=== PATIENT | male | born 1995 | race Two or more races ===

== ENCOUNTER 2024-11-25 22:24 | Emergency (ER) | payer SELFPAY ==
[~2024-11-25] VITALS: Ht 172.7 cm; Wt 101.5 kg
[2024-11-25 23:18] VITALS: BP 142/88
[2024-11-25] MEDS: SODIUM CHLORIDE 0.9% 1,000 ML IV ONE (23:18)
[2024-11-25] MEDS: FAMOTIDINE (10MG/ML) 2ML VL IV ONE (23:18)
[2024-11-25] MEDS: diphenhdrAMINE HCL 50 MG/1 ML VL IV ONE (23:18)
[2024-11-25] MEDS: ACETAMINOPHEN 500 MG TAB or CAP PO ONE (23:18)
[2024-11-25] MEDS: DexAMETHasone SOD PHOS 10MG/1ML VIAL INJ IV ONE (23:18)
[2024-11-25] MEDS: ONDANSETRON HCL 4 MG/2 ML VIAL ONE (23:29)
[2024-11-25 23:30] VITALS: PULSE 91; RESP 16; O2SAT 95
[2024-11-25] MEDS: ONDANSETRON HCL 4 MG/2 ML VIAL IV ONE (23:30)
[2024-11-26 00:18] VITALS: TEMP 100.1
--- NOTE | 2024-11-26 00:33 | ED.PDOC ---
HPI Allergic reaction HPI Comments 29 y/o obese M with no significant medical history c/o generalized upper torso, bilateral arms, neck, and facial rash with associated chest discomfort described as like someone socked me in the chest." Patient reports onset of symptoms this morning, worsened after taking a shower. Reports no recent known allergen exposure, new products or medications or sick contacts. Also reports having mild sore throat this morning that resolved prior to arrival. He denies having any current shortness of breath, throat pain or swelling, palpitations, fever, chills, or further associated symptoms. Chief Complaint: Allergic Reaction Time Seen by MD: 23:45 Primary Care Provider: UNK Reviewed Notes: Nurses Notes, Medications, Allergies Allergies: Coded Allergies: Erythromycin (Verified Allergy, Unknown, 12/18/14) Information Source: Patient Mode of Arrival: Ambulatory Severity: Mild Rash: Mild SOB: None Difficulty swallowing: None Pruritus: None Timing: Hours Duration: Since onset Prehospital treatment: None Location: Other (as per HPI) Exposed to: Unknown History of: None Modyifying Factors: None Associated Sign and Symptoms: Chest Pain Past Medical History PAST MEDICAL HISTORY: Denies Surgical History: Denies all surgeries Family History Family History: Reviewed,noncontributory to illness Social History Smoker: Non-Smoker Alcohol: Denies ETOH Use Drugs: Marijuana Lives In: Home All Other Systems: Reviewed and Negative (Comprehensive systems review obtained and negative except for what is stated in the HPI.) Physical Exam General Appearance: No Apparent Distress, Obese HEENT: Pharyngeal Erythema (Mild.), Other (Pupils and face symmetric. Moist mucous membranes.) Neck: Full Range of Motion, Normal Inspection Respiratory: Lungs Clear, No Accessory Muscle Use, No Respiratory Distress, Normal Breath Sounds Cardiovascular: No Edema, No JVD, Regular Rate/Rhythm Breast Exam: Deferred Gastrointestinal: Non Tender, Soft Genitalia: Deferred Pelvic: Deferred Rectal: Deferred Extremities: Normal range of motion, Non-tender, No pedal edema Neurologic: Alert (Oriented x4), Normal Affect, Normal Mood Cerebellar Function: NOT DONE Reflexes: NOT DONE Skin: Dry, Normal Color, Rash (Erythematous maculopapular rash on upper torso, forehead and upper extremities), Warm Lymphatic: NOT DONE Was a procedure done? Was a procedure done?: No Differential diagnosis (all) Differential Diagnosis: Anaphylaxis, Angioedema, Contact Dermatitis, Drug Reaction, Urticaria, Other (Viral exanthem, pneumonia, mi, arrhythmia, among others) X-Ray, Labs, Meds, VS Vital Signs Date Time Temp Pulse Resp B/P (MAP) Pulse Ox O2 Delivery O2 Flow Rate FiO2 11/26/24 00:18 100.1 11/25/24 23:56 100.3 100.3 11/25/24 23:30 91 16 95 Room Air* 0 21 11/25/24 23:18 100.6 11/25/24 23:18 100.6 91 16 142/88 (106) 95 100.6 11/25/24 22:30 16 95 Room Air* 0 21 11/25/24 22:30 100.6 91 16 142/88 (106) 95 100.6 Lab Test 11/25/24 23:37 Range/Units Troponin I High Sensitivity < 3 L </=54 ng/L Current Medications Medications (Trade) Dose Ordered Sig/Dominic Route Start Time Stop Time Status Last Admin Sodium Chloride 1,000 ml @ 1,000 mls/hr Q1H ONCE IV 11/25/24 23:00 11/25/24 23:59 DC 11/25/24 23:18 Acetaminophen (Tylenol Tablet Or Capsule) 1,000 mg ONCE ONCE PO 11/25/24 23:00 11/25/24 23:01 DC 11/25/24 23:18 Diphenhydramine HCl (Benadryl Injection) 50 mg ONCE ONCE IV 11/25/24 23:00 11/25/24 23:01 DC 11/25/24 23:18 Dexamethasone Sodium Phosphate (Decadron Injection) 10 mg ONCE ONCE IV 11/25/24 23:00 11/25/24 23:01 DC 11/25/24 23:18 Famotidine (Pepcid Injection) 20 mg ONCE ONCE IV 11/25/24 23:00 11/25/24 23:01 DC 11/25/24 23:18 Ondansetron HCl (Zofran) 4 mg ONCE ONCE IV 11/25/24 23:30 11/25/24 23:31 DC 11/25/24 23:30 PROCEDURE(s): CXR1 - CHEST XRAY 1 VIEW REASON: cp ORDER NUMBER(s): [id number], ACCESSION NUMBER(s): [id number] CHEST RADIOGRAPH Indication: cp Technique: Single frontal view of the chest was obtained Comparison: None FINDINGS: Lines and Tubes: None Lungs: Clear Pleura: No effusion. No pneumothorax. Cardiomediastinal contours: Unremarkable Bones: Unremarkable IMPRESSION: Clear lungs. X-Ray, Labs, Meds, VS Comment 29-year-old male with no significant past medical history presenting with rash and chest discomfort Vitals remarkable for temperature 100.6, BP 142/88 Exam remarkable for erythematous maculopapular rash on forehead, upper trunk and upper extremities Rhythm strip independently interpreted by me: Sinus rhythm, rate 91, no ectopy. Chest x-ray unremarkable Troponin negative Patient treated with the following in the ED: 1 L 0.9 normal saline IV bolus, Benadryl 50 mg IV, dexamethasone 10 mg IV, Pepcid 20 mg IV, Tylenol 1 g p.o. On re-evaluation, patient is no longer febrile and vitals were stable. Patient states he feels well and is comfortable being discharged home. Patient appears stable for discharge with close outpatient follow-up with his primary physician. Rx Benadryl, Pepcid, hydrocortisone, Tylenol Time of 1ST Reevaluation: 00:15 Reevaluation 1ST: Unchanged Time of 2ND Reevaluation: 01:10 Patient Education/Counseling: Treatment, Need For Follow Up Family Education/Counseling: No Family Present Departure 1 Departure Time of Disposition: 01:10 Impression: Primary Impression: Viral exanthem Additional Impression: Nonspecific chest pain Disposition: 01 HOME / SELF CARE / HOMELESS Condition: Stable Additional Instructions: Your blood test was unremarkable. Your chest x-ray was normal. Your EKG was normal. I have prescribed medication for your symptoms, which may be due to a viral rash. Follow-up with your primary doctor in 1-2 days. Return to ER for persistent or worsening symptoms. e-Prescriptions Famotidine (PEPCID TABLET) 20 Mg Tb 1 TAB PO BID PRN, #30 TAB 5 Refills Prn rash or itching Prov: JENNIFER MILLER MD 11/26/24 Hydrocortone (Hydrocortisone 1%) 1 Applic Ap 1 APPLIC TOP BID PRN, #30 GRAMS Prn rash or itching Prov: JENNIFER MILLER MD 11/26/24 Diphenhydramine Hcl (Benadryl Allergy) 25 Mg Tab 1-2 TAB PO Q6HP PRN, #30 TAB Prn rash or itching Prov: JENNIFER MILLER MD 11/26/24 Acetaminophen (Tylenol Extra Strength) 500 Mg Tab 1000 MG PO Q6HP PRN, #30 TAB Prn pain or fever Prov: JENNIFER MILLER MD 11/26/24 Discharged With: Self Critical Care Note Critical Care Time?: No Stability Stability form required: No Heart Score Heart Score: Heart Score Response (Comments) Value History Slightly Suspicious 0 EKG Repolarization Disturb 1 Age <45 0 Risk Factors No known risk factors 0 Troponin Normal limit 0 Total 1 I personally scribed for JENNIFER MILLER MD ([email or web address]) on 11/26/24 at 00:33. Electronically submitted by Vignesh Bridges ([email or web address]). JENNIFER MILLER MD November 26, 2024 00:33
--- NOTE | 2024-11-26 00:48 | DVH ---
CHEST RADIOGRAPH Indication: cp Technique: Single frontal view of the chest was obtained Comparison: None FINDINGS: Lines and Tubes: None Lungs: Clear Pleura: No effusion. No pneumothorax. Cardiomediastinal contours: Unremarkable Bones: Unremarkable IMPRESSION: Clear lungs.
[2024-11-26 01:12] VITALS: PULSE 74
[2024-11-26] MEDS ORDERED: DIPH25TA54 PO (01:13)
[2024-11-26] MEDS ORDERED: HYD1TP TOP (01:13)
[2024-11-26] MEDS ORDERED: FAMO20TA10 PO (01:13)
[2024-11-26] MEDS ORDERED: ACET-1304 PO (01:13)
[2024-11-26] MEDS ORDERED: ACYC400T16 PO (23:55)
--- NOTE | 2024-11-27 10:00 | ECG ---
[facility] Test Date: 2024-11-26 Test Time: 01:12:11 Pat Name: ELDA MITTAL Department: ER Room: Gender: M [employer]: KURT : 1995 Requested By: JENNIFER LOZADA Order Number: [id number] Reading MD: Measurements Intervals [place] Rate: 74 P: 12 NV: 153 QRS: -10 QRSD: 106 T: 27 QT: 378 QTc: 420 Interpretive Statements Sinus rhythm Please click the below link to view image of tracing.
== END 2024-11-26 01:23 | disposition home or self-care (01) ==
LOC: ER 22:24
DX: B09 Unspecified viral infection characterized by skin and mucous membrane lesions (principal); R07.89 Other chest pain; J02.9 Acute pharyngitis, unspecified; F12.90 Cannabis use, unspecified, uncomplicated; E66.9 Obesity, unspecified; Z88.1 Allergy status to other antibiotic agents
CPT/HCPCS: 36415; 71045; 84484; 96361; 96374; 96375; 99284; J1100; J1200; J2405; J3490; J7030

== ENCOUNTER 2024-11-26 21:59 | Emergency (ER) | payer SELFPAY ==
[~2024-11-26] VITALS: Ht 172.7 cm; Wt 103.1 kg
[~2024-11-26 21:59] MED LIST: ACET-1304 PO; DIPH25TA54 PO; FAMO20TA10 PO; HYD1TP TOP
[2024-11-26 23:52] VITALS: BP 146/89; PULSE 93; RESP 16; TEMP 97.6; O2SAT 97
[2024-11-26] MEDS ORDERED: ACYC400T16 PO (23:55)
--- NOTE | 2024-11-26 23:55 | ED.PDOC ---
History of Present Illness(SKN HPI Comments 29-year-old male presents to ER with complaints of rash x3 days. Patient reports that he started developing a 2/10 painful red rash to face, back, chest and arms and intermittent frontal headache 3 days ago. Notes that he was seen for his symptoms in ER here yesterday, diagnosed with a viral rash at that time and has been taking his prescribed medications without any relief. Patient states that his rash developed shortly after [facility]. Patient presents to ER ambulatory on arrival, with steady gait, in no distress. Denies fever, body aches, chills, shortness of breath, chest pain, use of new soaps/detergents or any further symptoms/complaints Chief Complaint: Rash Time Seen by MD: 22:02 Primary Care Provider: JESSE History of Present Illness: Nurses Notes, Medications, Allergies Allergies: Coded Allergies: Erythromycin (Verified Allergy, Unknown, 12/18/14) Home Meds Active Scripts Acyclovir (ZOVIRAX TABLET) 400 Mg Tb, 1 TAB PO TID for 7 Days, #21 TAB 0 Refills Prov:SERGO HADLEY 11/26/24 Famotidine (PEPCID TABLET) 20 Mg Tb, 1 TAB PO BID PRN, #30 TAB 5 Refills Prn rash or itching Prov:JENNIFER MILLER MD 11/26/24 Hydrocortone (Hydrocortisone 1%) 1 Applic Ap, 1 APPLIC TOP BID PRN, #30 GRAMS Prn rash or itching Prov:JENNIFER MILLER MD 11/26/24 Diphenhydramine Hcl (Benadryl Allergy) 25 Mg Tab, 1-2 TAB PO Q6HP PRN, #30 TAB Prn rash or itching Prov:JENNIFER MILLER MD 11/26/24 Acetaminophen (Tylenol Extra Strength) 500 Mg Tab, 1000 MG PO Q6HP PRN, #30 TAB Prn pain or fever Prov:JENNIFER MILLER MD 11/26/24 Information Source: Patient Mode of Arrival: Ambulatory Tetanus: UTD Past Medical History PAST MEDICAL HISTORY: Denies Surgical History: Denies all surgeries Family History Family History: Unknown Social History Smoker: Non-Smoker Alcohol: Denies ETOH Use Drugs: Marijuana Lives In: Home Constitutional: denies: chills, diaphoresis, fatigue, fever, malaise, sweats, weakness, others EENTM: denies: blurred vision, double vision, ear bleeding, ear discharge, ear drainage, ear pain, ear ringing, eye pain, eye redness, hearing loss, mouth pain, mouth swelling, nasal discharge, nose bleeding, nose congestion, nose joselyn n, photophobia, tearing, throat pain, throat swelling, voice changes, others Respiratory: denies: cough, hemoptysis, orthopnea, SOB at rest, shortness of breath, SOB with excertion, stridor, wheezing, others Cardiovascular: denies: chest pain, dizzy spells, diaphoresis, Dyspnea on exertion, edema, irregular heart beat, left arm pain, lightheadedness, palpitations, PND, syncope, others Gastrointestinal: denies: abdomen distended, abdominal pain, blood streaked bowels, constipated, diarrhea, dysphagia, difficulty swallowing, hematemesis, melena, nausea, poor appetite, poor fluid intake, rectal bleeding, rectal pain, vomiting, others Genitourinary: denies: burning, dysuria, flank pain, frequency, hematuria, incontinence, penile discharge, penile sore, pain, testicle pain, testicle swelling, urgency, others Neurological: denies: dizziness, fainting, headache, left sided numbness, left sided weakness, numbness, paresthesia, pre-existing deficit, right sided numbness, right sided weakness, seizure, speech problems, tingling, tremors, weakness, others Musculoskeletal: denies: back pain, gout, joint pain, joint swelling, muscle pain, muscle stiffness, neck pain, others Integumetry: reports: others (As stated in HPI) Allergic/Immunocompromised: denies: Difficulty Healing, Frequent Infections, Hives, Itching, others Hematologic/Lymphatic: denies: anemia, blood clots, easy bleeding, easy bruising, swollen glands, others Endocrine: denies: excessive hunger, excessive sweating, excessive thirst, excessive urination, flushing, intolerance to cold, intolerance to heat, unexplained weight gain, unexplained weight loss, others Psychiatric: denies: anxiety, bipolar disorder, depression, hopeless, panic disorder, schizophrenia, sleepless, suicidal, others Physical Exam General Appearance: No Apparent Distress, Obese HEENT: Normal ENT Inspection, PERRL/EOMI, Pharynx Normal, TMs Normal Neck: Full Range of Motion, Non-Tender, Normal Respiratory: Chest Non-Tender, Lungs Clear, No Accessory Muscle Use, No Respiratory Distress, Normal Breath Sounds Cardiovascular: No Murmur, No Gallop, Regular Rate/Rhythm Breast Exam: Deferred Gastrointestinal: NOT DONE Genitalia: Deferred Pelvic: Deferred Rectal: Deferred Extremities: Normal capillary refill, Normal range of motion Neurologic: Alert, capacitor tester II-XII nml as Tested, No Motor Deficits, Normal Affect, Normal Mood, No Sensory Deficits Cerebellar Function: Normal Reflexes: Normal Skin: Dry, Warm, Other (Erythemic vesicular rash on head/face and bilateral arms noted without bleeding/drainage) Lymphatic: No Adenopathy Was a procedure done? Was a procedure done?: No Sedation Sedation?: No Differential Diagnosis (INTG) Differential Diagnosis: Abrasion, Cellulitis Differential Diagnosis: Abscess, Atopic dermatitis, Contact Dermatitis, Impetigo X-Ray, Labs, Meds, VS Vital Signs Date Time Temp Pulse Resp B/P (MAP) Pulse Ox O2 Delivery O2 Flow Rate FiO2 11/26/24 23:52 93 16 97 Room Air 11/26/24 23:52 97.6 93 16 146/89 (108) 97 97.6 11/26/24 22:12 97.6 93 16 146/89 (108) 97 97.6 Advised to avoid contact sports/skin to skin contact until all lesions are fully crusted over Advised to drink plenty of fluids Patient in no distress during ER visit/prior to discharge Previous chart visit reviewed Advised to follow up with PCP in 1-2 days Patient verbalized understanding and agreeable with current plan of care Advised to return to ER immediately if symptoms worsen Time of 1ST Reevaluation: 23:24 Reevaluation 1ST: N/A Patient Education/Counseling: Diagnosis, Treatment, Prognosis, Need For Follow Up Family Education/Counseling: No Family Present Departure 1 Departure Time of Disposition: 23:50 Impression: Primary Impression: Herpes gladiatorum Disposition: HOME / SELF CARE / HOMELESS Condition: Stable e-Prescriptions Acyclovir (ZOVIRAX TABLET) 400 Mg Tb 1 TAB PO TID for 7 Days, #21 TAB 0 Refills Prov: SERGO HADLEY 11/26/24 Discharged With: Self Critical Care Note Critical Care Time?: No Stability Stability form required: No Heart Score Heart Score: Heart Score Response (Comments) Value History N/A 0 EKG N/A 0 Age N/A 0 Risk Factors N/A 0 Troponin N/A 0 Total 0 SERGO HADLEY November 26, 2024 23:55
[2024-11-28] MEDS ORDERED: HYDR-3682 PO (16:05)
[2024-11-28] MEDS ORDERED: PRED20TA2 PO (16:05)
== END 2024-11-27 00:03 | disposition home or self-care (01) ==
LOC: ER 22:03
DX: B00.9 Herpesviral infection, unspecified (principal); F12.90 Cannabis use, unspecified, uncomplicated; Z79.624 Long term (current) use of inhibitors of nucleotide synthesis; Z79.899 Other long term (current) drug therapy; Z88.1 Allergy status to other antibiotic agents

== ENCOUNTER 2024-11-28 13:29 | Emergency (ER) | payer SELFPAY ==
[~2024-11-28] VITALS: Ht 172.7 cm; Wt 98.6 kg
[~2024-11-28 13:29] MED LIST changes: +ACYC400T16 PO
[2024-11-28 14:52] VITALS: BP 129/98; PULSE 106; RESP 17; TEMP 97.8; O2SAT 96
[2024-11-28] MEDS ORDERED: PRED20TA2 PO (16:05)
[2024-11-28] MEDS ORDERED: HYDR-3682 PO (16:05)
--- NOTE | 2024-11-28 16:06 | ED.PDOC ---
History of Present Illness(SKN HPI Comments 29 y/o obese M with no significant medical history c/o generalized upper torso, bilateral arms, neck, and facial rash with associated chest discomfort described as like someone socked me in the chest." Patient reports onset of symptoms this morning, worsened after taking a shower. Reports no recent known allergen exposure, new products or medications or sick contacts. Also reports having mild sore throat this morning that resolved prior to arrival. He denies having any current shortness of breath, throat pain or swelling, palpitations, fever, chills, or further associated symptoms. Famotidine (PEPCID TABLET) 20 Mg Tb 1 TAB PO BID PRN, #30 TAB 5 Refills Prn rash or itching Prov: JENNIFER MILLER MD 11/26/24 Hydrocortone (Hydrocortisone 1%) 1 Applic Ap 1 APPLIC TOP BID PRN, #30 GRAMS Prn rash or itching Prov: JENNIFER MILLER MD 11/26/24 Diphenhydramine Hcl (Benadryl Allergy) 25 Mg Tab 1-2 TAB PO Q6HP PRN, #30 TAB Prn rash or itching Prov: JENNIFER MILLER MD 11/26/24 Acetaminophen (Tylenol Extra Strength) 500 Mg Tab 1000 MG PO Q6HP PRN, #30 TAB Prn pain or fever Prov: JENNIFER MILLER MD Seen 11/28 Acyclovir (ZOVIRAX TABLET) 400 Mg Tb 1 TAB PO TID for 7 Days, #21 TAB 0 Refills Prov: SERGO HADLEY Chief Complaint: Rash Time Seen by MD: 14:02 Primary Care Provider: NONE Allergies: Coded Allergies: Erythromycin (Verified Allergy, Unknown, 12/18/14) Home Meds Active Scripts Acyclovir (ZOVIRAX TABLET) 400 Mg Tb, 1 TAB PO TID for 7 Days, #21 TAB 0 Refills Prov:SERGO HADLEY 11/26/24 Famotidine (PEPCID TABLET) 20 Mg Tb, 1 TAB PO BID PRN, #30 TAB 5 Refills Prn rash or itching Prov:JENNIFER MILLER MD 11/26/24 Hydrocortone (Hydrocortisone 1%) 1 Applic Ap, 1 APPLIC TOP BID PRN, #30 GRAMS Prn rash or itching Prov:JENNIFER MILLER MD 11/26/24 Diphenhydramine Hcl (Benadryl Allergy) 25 Mg Tab, 1-2 TAB PO Q6HP PRN, #30 TAB Prn rash or itching Prov:JENNIFER MILLER MD 11/26/24 Acetaminophen (Tylenol Extra Strength) 500 Mg Tab, 1000 MG PO Q6HP PRN, #30 TAB Prn pain or fever Prov:JENNIFER MILLER MD 11/26/24 Mode of Arrival: Ambulatory Past Medical History PAST MEDICAL HISTORY: Denies Surgical History: Denies all surgeries Family History Family History: Unknown Social History Smoker: Non-Smoker Alcohol: Denies ETOH Use Drugs: Marijuana Lives In: Home X-Ray, Labs, Meds, VS Vital Signs Date Time Temp Pulse Resp B/P (MAP) Pulse Ox O2 Delivery O2 Flow Rate FiO2 11/28/24 14:52 97.8 106 17 129/98 (108) 96 97.8 11/28/24 14:52 106 17 96 Room Air 11/28/24 13:50 97.8 106 18 129/98 (108) 96 97.8 Time of 1ST Reevaluation: 16:04 Reevaluation 1ST: Improved Patient Education/Counseling: Diagnosis, Treatment Family Education/Counseling: Diagnosis, Treatment Departure 1 Departure Time of Disposition: 16:01 Impression: Primary Impression: Rash Disposition: 01 HOME / SELF CARE / HOMELESS Condition: Stable e-Prescriptions Hydroxyzine Hcl (Hydroxyzine Hcl) 25 Mg Tab 1 TAB PO TIDPRN PRN for 10 Days, #30 TAB 0 Refills Prov: DOROTHEA PERDOMO NP 11/28/24 Prednisone (Prednisone) 20 Mg Tab 60 MG PO DAILY for 5 Days, #15 TAB 0 Refills Prov: DOROTHEA PERDOMO NP 11/28/24 DOROTHEA PERDOMO NP November 28, 2024 16:05
== END 2024-11-28 16:20 | disposition home or self-care (01) ==
LOC: ER 13:29
DX: R21 Rash and other nonspecific skin eruption (principal); R07.89 Other chest pain; E66.9 Obesity, unspecified; Z79.624 Long term (current) use of inhibitors of nucleotide synthesis; Z79.899 Other long term (current) drug therapy; Z88.1 Allergy status to other antibiotic agents